=== PATIENT | male | born 1995 | race Caucasian/White ===

== ENCOUNTER 2021-06-02 12:03 | Emergency (ER) | payer MEDICAID ==
[~2021-06-02] VITALS: Ht 182.9 cm; Wt 90.0 kg
[2021-06-02] MEDS ORDERED: LORAZEPAM 0.5MG TABLET PO ONE (12:45)
[2021-06-02 13:06] LABS: BASOPHILS % 0.4 % (0.0-2.0); EOSINOPHILS % 2.8 % (0.0-5.0); HEMOGLOBIN. 13.8 g/dL (14.0-18.0); LYMPHOCYTES % 36.2 % (20.0-50.0); MEAN CORPUSCULAR HEMOGLOBIN 30.7 pg (28.0-32.0); MEAN CORPUSCULAR VOLUME 91.4 fL (80.0-94.0); MEAN PLATELET VOLUME 10.3 fl (7.4-10.4); MONOCYTES % 6.7 % (2.0-8.0); NEUTROPHILS % 53.9 % (40.0-76.0); PLATELET 117 x1000/uL (130-400); RED BLOOD CELL COUNT 4.49 mill/uL (4.7-6.1); RED CELL DISTRIBUTION WIDTH 12.8 % (11.6-14.6)
[2021-06-02 13:09] LABS: CLARITY URINE CLEAR (CLEAR); COLOR URINE YELLOW (YELLOW); KETONES URINE NEGATIVE (NEGATIVE); LEUKOCYTE ESTERASE URINE NEGATIVE (NEGATIVE); NITRITE URINE NEGATIVE (NEGATIVE); OCCULT BLOOD URINE NEGATIVE (NEGATIVE); PROTEIN URINE NEGATIVE (NEGATIVE); SPECIFIC GRAVITY URINE 1.009 (1.005-1.030); UROBILINOGEN URINE 0.2 E.U./dL (0.2-1.0)
[2021-06-02 13:15] LABS: CHLORIDE 117 mEq/L (98-107)
[2021-06-02 13:21] LABS: ETHANOL BLOOD < 10 mg/dL
[2021-06-02 13:39] LABS: *BENZODIAZEPINES SCREEN URINE NEGATIVE (NEGATIVE); *COCAINE SCREEN URINE NEGATIVE (NEGATIVE)
[2021-06-02 13:40] LABS: *AMPHETAMINES SCREEN URINE NEGATIVE (NEGATIVE); CANNABINOID URINE SCREEN NEGATIVE (NEGATIVE); METHADONE URINE SCREEN NEGATIVE (NEGATIVE); OPIATES URINE SCREEN NEGATIVE (NEGATIVE)
[2021-06-02 13:41] LABS: *BARBITURATES SCREEN URINE NEGATIVE (NEGATIVE); PHENCYCLIDINE URINE SCREEN NEGATIVE (NEGATIVE)
[2021-06-02] MEDS ORDERED: POTASSIUM CHLORIDE 20MEQ TABLET SR PO ONE (13:45)
[2021-06-02] MEDS ORDERED: VALPROIC ACID 250MG CAPSULE PO ONE (14:00)
[2021-06-02 17:09] VITALS: BP 132/70
== END 2021-06-02 17:19 | disposition home or self-care (01) ==
LOC: ER 12:03
DX: G40.909 Epilepsy, unspecified, not intractable, without status epilepticus (principal); F20.9 Schizophrenia, unspecified; J40 Bronchitis, not specified as acute or chronic; D64.9 Anemia, unspecified; Z88.8 Allergy status to other drugs, medicaments and biological substances
CPT/HCPCS: 36415; 80053; 80165; 80305; 80320; 81003; 85025; 93005; 99284; G0480

== ENCOUNTER 2022-06-23 10:39 | Emergency (ER) | payer MEDICAID, MEDICARE ==
[~2022-06-23] VITALS: Ht 177.8 cm; Wt 75.0 kg
[2022-06-23 10:42] VITALS: BP 138/90
[2022-06-23] MEDS ORDERED: CEFTRIAXONE SODIUM 500 MG/VIAL IM ONE (12:00)
[2022-06-23] MEDS ORDERED: DOXYCYCLINE HYCLATE 100MG CAPSULE PO ONE (12:00)
[2022-06-23] MEDS ORDERED: LIDOCAINE HCL 1% 20ML VIAL (Pyxis) INJ INFIL ONE (12:00)
[2022-06-23] MEDS ORDERED: LIDOCAINE HCL/PF 1% 10 MG/ML 5ML VIAL INFIL ONE (12:15)
[2022-06-23 12:44] LABS: CLARITY URINE CLEAR (CLEAR); COLOR URINE DARK YELLOW (YELLOW); KETONES URINE TRACE (NEGATIVE); LEUKOCYTE ESTERASE URINE NEGATIVE (NEGATIVE); NITRITE URINE NEGATIVE (NEGATIVE); OCCULT BLOOD URINE NEGATIVE (NEGATIVE); PROTEIN URINE TRACE (NEGATIVE); SPECIFIC GRAVITY URINE 1.035 (1.005-1.030)
[2022-06-23] MEDS ORDERED: DOXY100C5 MT (13:02)
[2022-06-25 04:07] LABS: NEISSERIA GONORRHOEAE NAA Positive (Negative)
== END 2022-06-23 13:24 | disposition home or self-care (01) ==
LOC: ER 10:39
DX: R36.9 Urethral discharge, unspecified (principal); Z11.3 Encounter for screening for infections with a predominantly sexual mode of transmission; Z88.8 Allergy status to other drugs, medicaments and biological substances; Z86.59 Personal history of other mental and behavioral disorders
CPT/HCPCS: 81003; 87491; 87591; 96372; 99283; J0696; J3490

== ENCOUNTER 2022-08-25 16:42 | Emergency (ER) | payer MEDICARE, MEDICAID ==
[~2022-08-25] VITALS: Ht 172.7 cm; Wt 80.0 kg
[~2022-08-25 16:42] MED LIST: DOXY100C5 MT
[2022-08-25 16:45] VITALS: BP 133/86
== END 2022-08-25 20:00 | disposition left against medical advice (07) ==
LOC: ER 16:42
DX: Z53.21 Procedure and treatment not carried out due to patient leaving prior to being seen by health care provider (principal)

== ENCOUNTER 2022-10-16 07:22 | Emergency (ER) | payer MEDICARE, MEDICAID ==
[~2022-10-16] VITALS: Ht 185.4 cm; Wt 102.3 kg
[2022-10-16 07:47] VITALS: BP 150/106
== END 2022-10-16 15:00 | disposition left against medical advice (07) ==
LOC: ER 07:22
DX: Z53.21 Procedure and treatment not carried out due to patient leaving prior to being seen by health care provider (principal)

== ENCOUNTER 2023-03-20 21:59 | Emergency (ER) | payer MEDICARE, MEDICAID ==
[~2023-03-20] VITALS: Ht 182.9 cm; Wt 100.0 kg
[2023-03-20] MEDS ORDERED: TETANUS, DIPHTHERIA, PERTUSSIS VAC/PF 0.5ML (>10YR OLD) IM ONE (23:00)
[2023-03-20] MEDS ORDERED: BACITRACIN ZINC OINT UDPKT TOP ONE (23:00)
[2023-03-20] MEDS ORDERED: LIDOCAINE HCL/PF 1% 10 MG/ML 5ML VIAL INFIL ONE (23:00)
[2023-03-20] MEDS ORDERED: CEPHALEXIN 250MG CAPSULE PO ONE (23:00)
[2023-03-20] MEDS ORDERED: IBUPROFEN 600MG TABLET PO ONE (23:00)
[2023-03-21 00:25] VITALS: BP 150/90
[2023-03-21] MEDS ORDERED: CEPH500C2 MT (00:48)
[2023-03-21] MEDS ORDERED: IBUP-2029 MT (00:48)
[2023-03-21] MEDS ORDERED: BO1 TP (00:48)
== END 2023-03-21 01:28 | disposition home or self-care (01) ==
LOC: ER 21:59
DX: S61.214A Laceration without foreign body of right ring finger without damage to nail, initial encounter (principal); Z86.59 Personal history of other mental and behavioral disorders; W26.0XXA Contact with knife, initial encounter; Y93.89 Activity, other specified; Y92.89 Other specified places as the place of occurrence of the external cause; Y99.8 Other external cause status
CPT/HCPCS: 12002; 73130; 90471; 90715; 99283

== ENCOUNTER 2023-04-03 08:34 | Emergency (ER) | payer MEDICARE, MEDICAID ==
[~2023-04-03] VITALS: Ht 188 cm; Wt 131.5 kg
[~2023-04-03 08:34] MED LIST changes: +BO1 TP; +CEPH500C2 MT; +IBUP-2029 MT
[2023-04-03 08:42] VITALS: BP 171/95
[2023-04-03] MEDS ORDERED: MUPI15CR11 TP (09:59)
[2023-04-03] MEDS ORDERED: CEPH500C2 MT (09:59)
[2023-04-03] MEDS ORDERED: SULF1TAB48 MT (09:59)
== END 2023-04-03 10:17 | disposition home or self-care (01) ==
LOC: ER 08:34
DX: Z48.02 Encounter for removal of sutures (principal); Z88.8 Allergy status to other drugs, medicaments and biological substances; Z86.59 Personal history of other mental and behavioral disorders
CPT/HCPCS: 99283

== ENCOUNTER 2023-04-16 08:05 | Emergency (ER) | payer MEDICARE, MEDICAID ==
[~2023-04-16] VITALS: Ht 185.4 cm; Wt 116.7 kg
[~2023-04-16 08:05] MED LIST changes: +MUPI15CR11 TP; +SULF1TAB48 MT
[2023-04-16 08:30] VITALS: O2SAT 96
[2023-04-16] MEDS ORDERED: CEPH500C2 PO (09:03)
[2023-04-16] MEDS ORDERED: SULF1TAB48 PO (09:03)
[2023-04-16 09:50] VITALS: BP 127/84; PULSE 86; RESP 16; TEMP 98.5
== END 2023-04-16 09:52 | disposition home or self-care (01) ==
LOC: ER 08:41
DX: N49.2 Inflammatory disorders of scrotum (principal)
CPT/HCPCS: 99281; 99283

== ENCOUNTER 2023-05-14 18:48 | Emergency (ER) | payer MEDICARE, MEDICAID ==
[~2023-05-14] VITALS: Ht 188 cm; Wt 122.4 kg
[~2023-05-14 18:48] MED LIST changes: +CEPH500C2 PO; +SULF1TAB48 PO
[2023-05-14 19:07] VITALS: BP 140/62; PULSE 103; RESP 18; TEMP 99; O2SAT 100
[2023-05-14] MEDS ORDERED: NAPR-681 MT (20:55)
[2023-05-14] MEDS ORDERED: CLIN-194 MT (20:55)
== END 2023-05-14 21:10 | disposition home or self-care (01) ==
LOC: ER 18:48
DX: N49.2 Inflammatory disorders of scrotum (principal); I10 Essential (primary) hypertension
CPT/HCPCS: 99283

== ENCOUNTER 2024-11-05 07:43 | Emergency (ER) | payer MEDICARE, OTHER ==
[~2024-11-05] VITALS: Ht 185.4 cm; Wt 84.0 kg
[~2024-11-05 07:43] MED LIST changes: +CLIN-194 MT; +NAPR-681 MT
[2024-11-05 07:44] VITALS: TEMP 98.7; O2SAT 98
[2024-11-05] MEDS ORDERED: HALOPERIDOL 5MG TABLET PO NR (08:45)
[2024-11-05] MEDS ORDERED: LORAZEPAM 2MG/ML INJ ONE (09:03)
[2024-11-05] MEDS: LORAZEPAM 2MG/ML INJ IM ONE (09:33)
[2024-11-05] MEDS: LORAZEPAM 2MG/ML INJ IV NR (09:34)
[2024-11-05 09:46] LABS: HEMATOCRIT. 44.9 % (42.0-52.0); MEAN CORPUSCULAR HEMOGLOBIN 32.1 pg (28.0-32.0); MEAN CORPUSCULAR HGB CONC 33.4 g/dL (31.0-37.0); MEAN CORPUSCULAR VOLUME 96.1 fL (80.0-94.0); MEAN PLATELET VOLUME 10.2 fl (7.4-10.4); PLATELET 168 x1000/uL (130-400); RED BLOOD CELL COUNT 4.67 mill/uL (4.7-6.1); RED CELL DISTRIBUTION WIDTH 13.3 % (11.6-14.6); WHITE BLOOD COUNT 10.4 x1000/uL (4.5-11.0)
[2024-11-05 09:57] LABS: DIFFERENTIAL COMMENT 1
[2024-11-05 10:00] LABS: PROTHROMBIN TIME 11.1 sec (9.6-11.0)
[2024-11-05 10:01] LABS: CHLORIDE 106 mEq/L (98-107); POTASSIUM 3.4 mEq/L (3.5-5.1); SODIUM 146 mEq/L (136-145)
[2024-11-05 10:02] LABS: CALCIUM 9.4 mg/dL (8.7-10.4); CARBON DIOXIDE 19 mEq/L (21-32)
[2024-11-05 10:07] LABS: CREATININE 0.9 mg/dL (0.6-1.3); GLUCOSE 102 mg/dL (70-105); UREA NITROGEN BLOOD 6 mg/dL (9-23)
[2024-11-05 10:09] LABS: ALANINE AMINOTRANSFERASE 36 IU/L (10-49); ALBUMIN 4.6 g/dL (3.2-4.8); ASPARTATE AMINOTRANSFERASE 33 IU/L (<34); BILIRUBIN TOTAL 0.3 mg/dL (0.1-1.0); PROTEIN TOTAL 6.7 g/dL (6.0-8.3)
[2024-11-05 10:11] LABS: ETHANOL BLOOD < 10 mg/dL (<10)
[2024-11-05] MEDS ORDERED: CLONIDINE 0.1MG TABLET PO PRN (11:00)
[2024-11-05] MEDS ORDERED: ACETAMINOPHEN 325MG TABLET PO PRN (11:00)
[2024-11-05] MEDS ORDERED: LORAZEPAM 2MG/ML INJ IV PRN (11:00)
[2024-11-05] MEDS ORDERED: ONDANSETRON HCL 4MG/2ML INJ IV PRN (11:00)
[2024-11-05] MEDS: SODIUM CHLORIDE 0.9% 1,000 ML IV ONE (11:15)
[2024-11-05 11:35] LABS: PLATELET ESTIMATE NORMAL
[2024-11-05] MEDS ORDERED: NALOXONE HCL 0.4MG/ML 1ML VIAL ONE (12:39)
[2024-11-05 15:15] LABS: CREATINE KINASE 131 IU/L (46-171)
[2024-11-05] MEDS: POTASSIUM CHLORIDE 20MEQ TABLET SR PO SCH (16:06)
[2024-11-05] MEDS: GABAPENTIN 100MG CAPSULE PO SCH (16:06)
[2024-11-05 16:07] VITALS: BP 147/85; PULSE 91; RESP 17; O2SAT 99
[2024-11-05] MEDS: POTASSIUM CHLORIDE 20MEQ TABLET SR PO NR (16:07)
[2024-11-05] MEDS ORDERED: DIVALPROEX SODIUM 500MG DR TABLET PO SCH (21:00)
[2024-11-05] MEDS ORDERED: LEVETIRACETAM 1,000MG in NACL 100ML PREMIX IV SCH (21:00)
[2024-11-05] MEDS ORDERED: LEVETIRACETAM 1000MG PREMIX 100 ML IV SCH (21:00)
[2024-11-05] MEDS ORDERED: DULOXETINE HCL 60MG DR CAPSULE PO SCH (21:00)
[2024-11-05] MEDS ORDERED: OLANZAPINE 10MG TABLET PO SCH (21:00)
== END 2024-11-05 16:08 | disposition home or self-care (01) ==
LOC: ER 07:52 → EDBEDREQ 08:47 → EDBEDREQTM 10:41 → ER 16:08
DX: G40.909 Epilepsy, unspecified, not intractable, without status epilepticus (principal); F20.9 Schizophrenia, unspecified; I10 Essential (primary) hypertension; Z79.1 Long term (current) use of non-steroidal anti-inflammatories (NSAID); Z79.899 Other long term (current) drug therapy
CPT/HCPCS: 80053; 80320; 82550; 83690; 85025; 85610; 36415; 70450; 93005; 96372; 96374; 99291; J2060; J2310; J7030; G0480

== ENCOUNTER 2024-12-30 18:59 | Emergency (ER) | payer MEDICARE, MEDICAID ==
[~2024-12-30] VITALS: Ht 182.9 cm; Wt 90.0 kg
[2024-12-30 19:01] VITALS: O2SAT 99
[2024-12-30] MEDS: SODIUM CHLORIDE 0.9% 1,000 ML IV ONE (20:00)
[2024-12-30] MEDS: VALPROIC ACID 250MG CAPSULE PO ONE (20:00)
[2024-12-30 21:04] LABS: BASOPHILS % 0.5 % (0.0-2.0); EOSINOPHILS % 0.6 % (0.0-5.0); HEMOGLOBIN. 14.2 g/dL (14.0-18.0); LYMPHOCYTES % 44.3 % (20.0-50.0); MEAN CORPUSCULAR HEMOGLOBIN 31.1 pg (28.0-32.0); MEAN CORPUSCULAR HGB CONC 33.8 g/dL (31.0-37.0); MEAN CORPUSCULAR VOLUME 92.2 fL (80.0-94.0); MEAN PLATELET VOLUME 10.7 fl (7.4-10.4); MONOCYTES % 9.2 % (2.0-8.0); NEUTROPHILS % 45.4 % (40.0-76.0); PLATELET 101 x1000/uL (130-400); RED BLOOD CELL COUNT 4.56 mill/uL (4.7-6.1); RED CELL DISTRIBUTION WIDTH 12.4 % (11.6-14.6); WHITE BLOOD COUNT 5.8 x1000/uL (4.5-11.0)
[2024-12-30 21:11] LABS: CHLORIDE 105 mEq/L (98-107); POTASSIUM 3.5 mEq/L (3.5-5.1); SODIUM 142 mEq/L (136-145)
[2024-12-30 21:12] LABS: CALCIUM 9.1 mg/dL (8.7-10.4); CARBON DIOXIDE 26 mEq/L (21-32)
[2024-12-30 21:17] LABS: CREATININE 0.7 mg/dL (0.6-1.3); GLUCOSE 98 mg/dL (70-105); UREA NITROGEN BLOOD 7 mg/dL (9-23)
[2024-12-30 21:44] VITALS: BP 122/95; PULSE 95; RESP 19; TEMP 36.4; O2SAT 98
== END 2024-12-30 21:52 | disposition home or self-care (01) ==
LOC: ER 19:23
DX: F12.90 Cannabis use, unspecified, uncomplicated (principal); R56.9 Unspecified convulsions; I10 Essential (primary) hypertension; Z79.1 Long term (current) use of non-steroidal anti-inflammatories (NSAID); Z79.899 Other long term (current) drug therapy; Z88.8 Allergy status to other drugs, medicaments and biological substances
CPT/HCPCS: 99283; 96360; 80048; 85025; 36415; J7030